=== PATIENT | female | born 2000 | race Caucasian/White ===

== ENCOUNTER 2020-09-05 10:27 | Emergency (ER) | payer OTHER, SELFPAY ==
--- NOTE | ~2020-09-05 | XR_ITS ---
XR hand LT min 3V 09/05/2020 10:54 INDICATION: Left hand pain PROCEDURE: 3 views left hand COMPARISON: No prior studies for comparison. FINDINGS: Fracture, dislocation or subluxation is not identified. The soft tissues appear within norm al limits. No foreign bodies are identified. IMPRESSION: 1: NO ACUTE BONE OR JOINT ABNORMALITY IDENTIFIED. Reviewed, dictated and finalized at location B. [employer]
[2020-09-05 10:35] VITALS: BP 120/69; PULSE 90; RESP 16; TEMP 36.7; O2SAT 100
--- NOTE | 2020-09-05 10:54 | ED.UPPEXIN ---
HPI - Extremity Injury (Upper) General Chief Complaint: Extremity Injury, Upper Stated Complaint: lt wrist injury Source: patient Mode of arrival: ambulatory Limitations: no limitations History of Present Illness HPI narrative: Patient is a 19-year-old female who presents complaining of left hand pain. She reports that she was boxing this a.m. and reports hitting a punching bag wrong. She reports left hand pain and tenderness with palpation. She denies taking [id number] medications prior to arrival. She denies other complaints at this time. She has no significant medical history MD complaint: injury to: left and hand Related Data Home Medications Medication Instructions Recorded Confirmed sertraline 50 mg PO DAILY 09/05/20 09/05/20 Allergies Allergy/AdvReac Type Severity Reaction Status Date / Time No Known Allergies Allergy Verified 09/05/20 10:38 Review of Systems Review of Systems: Narrative: CONSTITUTIONAL: Denies fever, chills, or sweats. EYES: Denies visual changes, redness, or discharge. ENT: Denies rhinorrhea, congestion, sore throat, or otalgia. CARDIOVASCULAR: Denies chest pain, palpitations, or edema. RESPIRATORY: Denies cough or dyspnea. GASTROINTESTINAL: Denies abdominal pain, nausea, vomiting, or diarrhea. GENITOURINARY: Denies dysuria or hematuria. SKIN: Denies rash or itching. MUSCULOSKELETAL: Left hand pain NEUROLOGIC: Denies headache, numbness, dizziness, or weakness. PSYCHIATRIC: Denies anxiety or depression. PMFSH Past Medical History Medical History (Updated 09/05/20 @ 11:16 by AADM Hernandez) No significant past medical history Surgical History Surgical History (Updated 09/05/20 @ 11:15 by ADAM Hernandez) No significant past surgical history Family History Family History Other No significant family history Social History Social History Smoking status: Never smoker Alcohol intake: current Alcohol use details: occasional Substance use: never Living arrangements: with family Exam Narrative: Exam Narrative: GENERAL: Well-appearing, well-nourished, and in no acute distress. HEAD: Normocephalic, atraumatic. EYES: No redness or drainage. ENT: Mucous membranes pink and moist. CHEST: No respiratory distress. EXTREMITIES: Left hand with mild edema, tenderness with palpation at wrist and fifth metacarpal. SKIN: Warm, dry, no rash. NEURO: No focal deficits. Alert and oriented x3. Gait steady. PSYCH: Normal affect. No signs of depression or anxiety. Course Vital Signs Vital signs: Vital Signs Temperature 36.7 C 09/05/20 10:35 Pulse Rate 90 09/05/20 10:35 Respiratory Rate 16 09/05/20 10:35 Blood Pressure 120/69 09/05/20 10:35 Pulse Oximetry 100 09/05/20 10:35 Temperature 36.7 C 09/05/20 10:35 Pulse Rate 90 09/05/20 10:35 Respiratory Rate 16 09/05/20 10:35 Blood Pressure 120/69 09/05/20 10:35 Pulse Oximetry 100 09/05/20 10:35 Reviewed. Patient has been instructed to follow-up with her PCP regarding her blood pressure. MDM - Extremity Injury (Upper) MDM Narrative Medical decision making narrative: Patient's x-ray shows no acute fracture dislocation abnormalities. Discussed with patient that she most likely has a sprain or strain of the wrist and hand. Discussed taking NSAIDs for pain as well as ice and elevation. She may use an Carlos wrap for comfort. Patient is stable for discharge to home with outpatient follow-up as needed. Differential Diagnosis Differential diagnosis: Likely sprain and strain of wrist, finger sprain, fracture of hand and other (sprain hand) Imaging Data Radiologist's impression: ITS Impressions Hand X-Ray 09/05/20 11:04 IMPRESSION: 1: NO ACUTE BONE OR JOINT ABNORMALITY IDENTIFIED. Critical Care Time Critical Care Time Critical Care Time: No
== END 2020-09-05 11:19 | disposition home or self-care (01) ==
PROVIDERS: Emergency Provider Nurse Practitioner
DX: S63.502A Unspecified sprain of left wrist, initial encounter (principal); S66.912A Strain of unspecified muscle, fascia and tendon at wrist and hand level, left hand, initial encounter; W22.8XXA Striking against or struck by other objects, initial encounter
CPT/HCPCS: 73130; 99203; G0463